=== PATIENT | female | born 2000 | race Caucasian/White ===

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

== ENCOUNTER 2018-09-15 15:39 | Emergency (ER) | payer SELFPAY ==
[~2018-09-15] VITALS: Ht 165.1 cm; Wt 84.8 kg
[2018-09-15 16:28] LABS: RAPID INFLUENZA A POSITIVE (Negative); RAPID INFLUENZA B Negative (Negative)
[2018-09-15 16:30] VITALS: BP 136/60
[2018-09-15 16:36] LABS: BASOPHILS # (AUTO) 0.02 x10^3/uL (0-0.3); BASOPHILS % (AUTO) 0 % (0-1); EOSINOPHILS # (AUTO) 0.05 x10^3/uL (0-0.8); EOSINOPHILS % (AUTO) 1 % (1-7); LYMPHOCYTES # (AUTO) 1.58 x10^3/uL (1-6.1); LYMPHOCYTES % (AUTO) 29 % (22-44); MD NO; MEAN CORPUSCULAR HEMOGLOBIN 28.3 pg (27.0-34.8); MEAN CORPUSCULAR VOLUME 83.3 fL (80-100); MEAN PLATELET VOLUME 9.3 fL (7.4-10.4); MONOCYTES # (AUTO) 0.92 x10^3/uL (0-1.4); MONOCYTES % (AUTO) 17 % (2-9); NEUTROPHILS # (AUTO) 2.83 x10^3/uL (1.8-8.0); NEUTROPHILS % (AUTO) 52 % (42-75); PLATELET COUNT 215 x10^3/uL (130-400); RED BLOOD COUNT 5.93 x10^6/uL (3.82-5.3); RED CELL DISTRIBUTION WIDTH 13.3 % (9.6-15.2)
[2018-09-15 16:39] LABS: ANION GAP 11 mmol/L (5-15); CALCIUM 9.2 mg/dL (8.5-10.1); CHLORIDE 102 mmol/L (98-107); CREATININE 1.03 mg/dL (0.55-1.02)
--- NOTE | 2018-09-15 17:30 | NUR ---
DC EDUCATION PROVIDED,PT DEMONSTRATES UNDERSTANDING. PT PROVIDED SPACER AND EDUCATED ON USE. PT AMBULATED STEADILY TO DC WITH RN
== END 2018-09-15 17:32 | disposition home or self-care (01) ==
LOC: ED 17:26
DX: J10.1 Influenza due to other identified influenza virus with other respiratory manifestations (principal); M79.10 Myalgia, unspecified site; F17.200 Nicotine dependence, unspecified, uncomplicated
CPT/HCPCS: 36415; 71046; 80048; 84703; 85025; 87400; 99284